=== PATIENT | female | born 1970 | race African-American/Black ===

== ENCOUNTER 2019-06-25 17:36 | Emergency (ER) | payer BC, OTHER ==
[~2019-06-25] VITALS: Ht 157.4 cm; Wt 87.7 kg
[2019-06-25 18:39] LABS: BASOPHILS % (AUTO) 1 % (0-10); EOSINOPHILS # (AUTO) 0.1 10^3/uL (0.0-0.3); EOSINOPHILS % (AUTO) 1 % (0-10); HEMATOCRIT 40 % (35-52); HEMOGLOBIN 13.4 G/DL (11.5-16.0); LYMPHOCYTES # (AUTO) 1.3 X 10^3 (1.0-4.0); LYMPHOCYTES % (AUTO) 21 % (12-44); MEAN CORPUSCULAR HEMOGLOBIN 30 PG (25-34); MEAN CORPUSCULAR HGB CONC 33 G/DL (32-36); MEAN CORPUSCULAR VOLUME 90 FL (80-99); MEAN PLATELET VOLUME 9.4 FL (7.4-10.4); MONOCYTES # (AUTO) 0.6 X 10^3 (0.0-1.0); MONOCYTES % (AUTO) 10 % (0-12); NEUTROPHILS # (AUTO) 4.1 X 10^3 (1.8-7.8); NEUTROPHILS % (AUTO) 67 % (42-75); PLATELET COUNT 323 10^3/uL (130-400); WHITE BLOOD COUNT 6.2 10^3/uL (4.3-11.0)
[2019-06-25 18:44] LABS: INR 0.9 (0.8-1.4); PROTHROMBIN TIME PATIENT 12.6 SEC (12.2-14.7)
[2019-06-25] MEDS ORDERED: ASPIRIN 81 MG CHEW (CHILDREN'S ASA) PO ONE (18:45)
--- NOTE | 2019-06-25 18:55 | Diagnostic Imaging Report ---
EXAMINATION: Single view of the chest. INDICATION: Neck and shoulder pain. Chest discomfort. COMPARISON: No comparison available. FINDINGS: Lungs demonstrate no focal infiltrate or consolidation. There is no effusion. There is no pneumothorax. Heart size and mediastinal contours are appropriate. The pulmonary vascularity appears normal. No acute or suspicious osseous abnormality is demonstrated. IMPRESSION: No radiographic evidence of an acute cardiopulmonary process. Dictated by: Dictated on workstation # [id number]
[2019-06-25 18:56] LABS: ALANINE AMINOTRANSFERASE 38 U/L (0-55); ALBUMIN 4.5 GM/DL (3.2-4.5); ALKALINE PHOSPHATASE 87 U/L (40-136); AMYLASE 117 U/L (25-125); BILIRUBIN,TOTAL 0.2 MG/DL (0.1-1.0); BUN/CREATININE RATIO 16; CALCIUM 10.2 MG/DL (8.5-10.1); CARBON DIOXIDE 22 MMOL/L (21-32); CHLORIDE 104 MMOL/L (98-107); CREATINE KINASE 82 U/L (29-168); CREATININE SERUM 0.81 MG/DL (0.60-1.30); GFR ESTIMATED > 60; GLUCOSE 196 MG/DL (70-105); LIPASE 69 U/L (8-78); MAGNESIUM 1.8 MG/DL (1.6-2.4); POTASSIUM 3.8 MMOL/L (3.6-5.0); SODIUM 138 MMOL/L (135-145); TOTAL PROTEIN 7.7 GM/DL (6.4-8.2)
[2019-06-25 19:02] LABS: CREATINE KINASE MB 0.7 NG/ML (<6.6)
[2019-06-25] MEDS ORDERED: IOHEXOL 350 MG/ML 100 ML (OMNIPAQUE 350) VIAL IV ONE (19:45)
[2019-06-25] MEDS ORDERED: NS 100 ML (IVPB) BAG IV ONE (19:45)
[2019-06-25] MEDS ORDERED: HOLD METFORMIN - RECEIVED CONTRAST 20 ML VIAL IV SCH (19:45)
--- NOTE | 2019-06-25 20:08 | Diagnostic Imaging Report ---
PROCEDURE: CT angiography of the chest with contrast. TECHNIQUE: Multiple contiguous axial images were obtained through the chest after uneventful bolus administration of intravenous contrast. 3D reconstructed CTA MIP acquisitions were also performed. Auto Exposure Controls were utilized during the CT exam to meet ALARA standards for radiation dose reduction. INDICATION: Shortness of breath and chest pain. FINDINGS: There is adequate opacification of the pulmonary arterial system for diagnostic evaluation. There are no CT angiographic findings of a filling defect within the pulmonary arteries to suggest current embolism. The thoracic aorta is normal in caliber without dissection. Heart size is normal. There is no pericardial effusion. There are no pathologically enlarged mediastinal, hilar or axillary lymph nodes. The lungs demonstrate some minimal dependent atelectasis at the lung bases. There is some very slight patchy interstitial and alveolar opacity within the anterior aspect of the right upper lobe. Some minimal infiltrates given an anti-dependent location cannot be excluded. There is no effusion or pneumothorax. Visualized portion of the upper abdomen demonstrates no evidence of an acute process. There is a fluid collection with surrounding soft tissue thickening within the lateral and inferior right breast. Correlate for recent surgical intervention. IMPRESSION: 1. No CT angiographic evidence of pulmonary embolism. 2. Thoracic aorta unremarkable. 3. Question of some minimal infiltrate within the anterior aspect of the right upper lobe. Lungs otherwise are clear. 4. No pathologic adenopathy 5. No acute upper abdominal abnormality 6. Nonspecific fluid collection within the inferior and lateral right breast. Correlate for any known recent intervention. An abscess cannot be excluded. Dictated by: Dictated on workstation # [id number]
[2019-06-25] MEDS ORDERED: RX-CYCLOBENZAPRINE 10 MG (FLEXERIL) TAB PPK#3 PO STA (20:21)
[2019-06-25] MEDS ORDERED: RX-DOXYCYCLINE 100 MG (VIBRAMYCIN) TAB PPK#2 PO STA (20:21)
[2019-06-25] MEDS ORDERED: DOXY100C42 PO (20:25)
[2019-06-25] MEDS ORDERED: CYCL10TA9 PO (20:25)
--- NOTE | 2019-06-25 20:25 | ED Chest Pain ---
General Chief Complaint: Chest Pain Stated Complaint: NECK PAIN,NAUSEA Nursing Triage Note: Pt amb to triage w/o difficulty with c/o rt neck, rt shoulder, and medial chest discomfort. Reports onset of discomfort to be 06/23/19. Reports symptoms be to associated with intermittent nausea and SOA. Reports she is currently being treated with a "trial breast cancer drug." Reports to have had her most recent injection of "trial medication" on 06/19/19. Nursing Sepsis Screen: No Definite Risk Source: patient (PT SPEAKS [place] [place]) History of Present Illness Date Seen by Provider: Jun 25, 2019 Time Seen by Provider: 18:25 Initial Comments PT ARRIVES VIA POV C/O PAIN TO RIGHT LATERAL NECK AND SHOULDER/UPPER ARM PAIN SINCE Sunday06/23/19 HAS HAD ONGOING NAUSEA OFF AND ON FOR 2 WEEKS C/O SHORTNESS OF BREATH ON EXERTION TODAY NO COUGH NO FEVER NO SWELLING IN LEGS/ FEET OR PAIN IN CALVES NO DIZZINESS NO PALPITATIONS NO SYNCOPE PT TRAVELS WEEKLY FOR HER WORK, AND STATES THAT SHE WILL BE DRIVING BACK TO [facility] IN THE MORNING--STATES SHE "JUST WANTED TO GET CHECKED" BEFORE SHE DRIVES HOME TOMORROW HAS NOT TAKEN ANYTHING FOR PAIN PT IS RIGHT HANDED PT HAS HISTORY OF BILATERAL P.E.'S IN 2018--TOOK LOVENOX FOR 8 MONTHS, LAST DOSE IN DECEMBER. IS NOT ON ASPIRIN OR ANY BLOOD THINNERS PT ALSO IS DIABETIC AND HAS HTN PT STATES SHE WAS TREATED FOR BREAST CANCER IN 2018--HAD RIGHT BREAST LUMPECTOMY, CHEMO AND RADIATION. STATES SHE IS NOW IN A CLINICAL TRIAL--"A VACCINE"--HAD HER SECOND INJECTION 06/19/19 DENIES HISTORY OF CARDIAC PROBLEMS Allergies and Home Medications Allergies Coded Allergies: epinephrine (Verified Allergy, Mild, 06/25/19) "MAKES ME HYPER" Home Medications Cyclobenzaprine HCl 10 Mg Tablet, 10 MG PO Q8H Prescribed by: SKYLA RODRIGUEZ on 06/25/192024 Doxycycline Monohydrate 100 Mg Capsule, 100 MG PO BID Prescribed by: SKYLA RODRIGUEZ on 06/25/192024 Patient Home Medication List Home Medication List Reviewed: Yes Review of Systems Review of Systems Constitutional: no symptoms reported; No chills, No dizziness, No fever EENTM: No Symptoms Reported Respiratory: See HPI; Denies Cough, Denies Orthopnea; SOA With Exertion; Denies Wheezing Cardiovascular: Denies Chest Pain, Denies Edema, Denies Irregular Heart Rate, Denies Lightheadedness, Denies Palpitations, Denies Syncope Gastrointestinal: See HPI; Denies Abdominal Pain; Nausea; Denies Vomiting Genitourinary: No Symptoms Reported Musculoskeletal: see HPI Skin: no symptoms reported Psychiatric/Neurological: No Symptoms Reported; Denies Paresthesia Endocrine: No Symptoms Reported Hematologic/Lymphatic: No Symptoms Reported Past Jldrbqi-Gncwby-Ffqroe Hx Patient Social History Alcohol Use: Occasionally Uses (1-2 DRINKS / WEEK) Recreational Drug Use: No Smoking Status: Never a Smoker 2nd Hand Smoke Exposure: No Recent Foreign Travel: No Contact w/Someone Who Travel: No Recent Infectious Disease Expo: No Recent Hopitalizations: No Seasonal Allergies Seasonal Allergies: Yes Past Medical History Surgeries: Yes (RIGHT BREAT LUMPECTOMY 2017) Respiratory: Yes (BILATERAL P.E. 2018--TOOK LOVENOX X 8 MONTHS--LAST DOSE 12/2018) Pulmonary Embolism, Sleep Apnea Currently Using CPAP: Yes Currently Using BIPAP: No Cardiac: Yes Hypertension Neurological: Yes (NARCOLEPSY) Genitourinary: No Gastrointestinal: Yes Chronic Constipation, Irritable Bowel Musculoskeletal: No Endocrine: Yes Diabetes, Non-Insulin dep Are Your Blood Sugars Over 250: No HEENT: Yes Glaucoma Cancer: Yes (RIGHT BREAST CANCER DX 2017--S/P LUMPECTOMY, CHEMO AND RADIATION. CURRENTLY ON DRUG TRIAL WITH A "VACCINE"--HAD SECOND INJECTION 06/19/19-- OF 06/25/1019) Breast Did You Recieve Any Treatments: Yes What Type of Treatment Did You: Chemotherapy, Radiation, Surgical Intervention, Other Reports she is currently treating breast cancer with a "trial medication." Psychosocial: Yes (NARCOLEPSY) Integumentary: No Physical Exam Vital Signs Vital Signs - First Documented 06/25/19 18:00 Temp 37.0 Pulse 97 Resp 18 B/P (MAP) 139/105 (116) Pulse Ox 98 O2 Delivery Room Air Capillary Refill : Less Than 3 Seconds Height, Weight, BMI Height: '" Weight: lbs. oz. kg; 35.00 BMI Method: General Appearance: No Apparent Distress, WD/WN HEENT: PERRL/EOMI Neck: Full Range of Motion, Normal Inspection, Non Tender, Supple, Carotid Bruit Respiratory: Chest Non Tender, Normal Breath Sounds, No Accessory Muscle Use, No Respiratory Distress Cardiovascular: Regular Rate, Rhythm, No Edema, No JVD, No Murmur, Normal Peripheral Pulses Gastrointestinal: Normal Bowel Sounds, No Organomegaly, No Pulsatile Mass, Non Tender, Soft Extremity: Normal Capillary Refill, Normal Range of Motion, No Calf Tenderness, No Pedal Edema, Other (TENDERNESS TO RIGHT TRAPEZIUS MUSCLE--PALPATION REPRODUCES PAIN ) Neurologic/Psychiatric: Alert, Oriented x3, No Motor/Sensory Deficits, Normal Mood/Affect, pigskin trimmer II-XII Norm as Tested Skin: Normal Color (PT IS BLACK), Warm/Dry; No Rash Progress/Results/Core Measures Results/Orders Lab Results Laboratory Tests Test 06/25/19 18:20 Range/Units White Blood Count 6.2 4.3-11.0 10^3/uL Red Blood Count 4.44 4.35-5.85 10^6/uL Hemoglobin 13.4 11.5-16.0 G/DL Hematocrit 40 35-52 % Mean Corpuscular Volume 90 80-99 FL Mean Corpuscular Hemoglobin 30 25-34 PG Mean Corpuscular Hemoglobin Concent 33 32-36 G/DL Red Cell Distribution Width 13.0 10.0-14.5 % Platelet Count 323 130-400 10^3/uL Mean Platelet Volume 9.4 7.4-10.4 FL Neutrophils (%) (Auto) 67 42-75 % Lymphocytes (%) (Auto) 21 12-44 % Monocytes (%) (Auto) 10 0-12 % Eosinophils (%) (Auto) 1 0-10 % Basophils (%) (Auto) 1 0-10 % Neutrophils # (Auto) 4.1 1.8-7.8 X 10^3 Lymphocytes # (Auto) 1.3 1.0-4.0 X 10^3 Monocytes # (Auto) 0.6 0.0-1.0 X 10^3 Eosinophils # (Auto) 0.1 0.0-0.3 10^3/uL Basophils # (Auto) 0.0 0.0-0.1 10^3/uL Prothrombin Time 12.6 12.2-14.7 SEC INR Comment 0.9 0.8-1.4 Activated Partial Thromboplast Time 25 24-35 SEC Sodium Level 138 135-145 MMOL/L Potassium Level 3.8 3.6-5.0 MMOL/L Chloride Level 104 98-107 MMOL/L Carbon Dioxide Level 22 21-32 MMOL/L Anion Gap 12 5-14 MMOL/L Blood Urea Nitrogen 13 7-18 MG/DL Creatinine 0.81 0.60-1.30 MG/DL Estimat Glomerular Filtration Rate > 60 BUN/Creatinine Ratio 16 Glucose Level 196 H 70-105 MG/DL Calcium Level 10.2 H 8.5-10.1 MG/DL Corrected Calcium 9.8 8.5-10.1 MG/DL Magnesium Level 1.8 1.6-2.4 MG/DL Total Bilirubin 0.2 0.1-1.0 MG/DL Aspartate Amino Transf (AST/SGOT) 26 5-34 U/L Alanine Aminotransferase (ALT/SGPT) 38 0-55 U/L Alkaline Phosphatase 87 40-136 U/L Total Creatine Kinase 82 29-168 U/L Creatine Kinase MB 0.7 <6.6 NG/ML Myoglobin 16.5 10.0-92.0 NG/ML Troponin I < 0.028 <0.028 NG/ML B-Type Natriuretic Peptide 14.3 <100.0 PG/ML Total Protein 7.7 6.4-8.2 GM/DL Albumin 4.5 3.2-4.5 GM/DL Amylase Level 117 25-125 U/L Lipase 69 8-78 U/L My Orders Orders - SKYLA RODRIGUEZ DO Cbc With Automated Diff (06/25/19 18:33) Magnesium (06/25/19 18:33) Chest 1 View, Ap/Pa Only (06/25/19 18:33) Ekg Tracing (06/25/19 18:33) Cardiac Profile 1 (06/25/19 18:33) Comprehensive Metabolic Panel (06/25/19 18:33) Myoglobin Serum (06/25/19 18:33) Protime With Inr (06/25/19 18:33) Partial Thromboplastin Time (06/25/19 18:33) O2 (06/25/19 18:33) Monitor-Rhythm Ecg Trace Only (06/25/19 18:33) Ed Iv/Invasive Line Start (06/25/19 18:33) Creatine Kinase (06/25/19 18:33) Creatine Kinase Mb (06/25/19 18:33) Lipase (06/25/19 18:33) Amylase (06/25/19 18:33) BNP (06/25/19 18:33) Aspirin Chewable Tablet (Baby Aspirin Ch (06/25/19 18:45) Ct Angio Chest W (06/25/19 19:26) Iohexol Injection (Omnipaque 350 Mg/Ml 1 (06/25/19 19:45) Received Contrast (Hold Metformin- Contr (06/25/19 19:45) Ns (Ivpb) (Sodium Chloride 0.9% Ivpb Bag (06/25/19 19:45) Rx-Doxycycline Tablet (Rx-Vibramycin Tab (06/25/19 20:21) Rx-Cyclobenzaprine Tablet (Rx-Flexeril T (06/25/19 20:21) Ibuprofen Tablet (Motrin Tablet) (06/25/19 20:30) Medications Given in ED Current Medications Medications Dose Ordered Sig/Shanel Route Start Time Stop Time Status Last Admin Dose Admin Aspirin 324 mg ONCE ONCE PO 06/25/19 18:45 06/25/19 18:46 DC 06/25/19 18:48 324 MG Iohexol 100 ml ONCE ONCE IV 06/25/19 19:45 06/25/19 19:48 DC 06/25/19 20:00 85 ML Sodium Chloride 100 ml ONCE ONCE IV 06/25/19 19:45 06/25/19 19:48 DC 06/25/19 20:00 80 ML Vital Signs/I&O 06/25/19 06/25/19 06/25/19 18:00 18:00 20:50 Temp 37.0 37.0 Pulse 97 97 Resp 18 18 B/P (MAP) 139/105 (116) 110/91 (116) Pulse Ox 98 98 O2 Delivery Room Air Room Air Room Air Blood Pressure Mean: 116 Progress Progress Note : Progress Note PAIN EASED AT DISMISSAL BP DOWN WITHOUT TREATMENT Initial ECG Impression Date: Jun 26, 2019 Initial ECG Impression Time: 18:31 Initial ECG Rate: 92 Initial ECG Rhythm: Normal Sinus Initial ECG Impression: Nonspecific Changes (FLATTENED T WAVES) Initial ECG Comparisson: No Previous ECG Available Diagnostic Imaging Comments CXR--NO ACUTE PROCESS, PER RADIOLOGIST REPORT CT CHEST ANGIOGRAM--NO P.E., POSSIBLE RUL ATELECTASIS/INFILTRATE, PER RADIOLOGIST REPORT AT 2016 Reviewed: Reviewed by Me Departure Impression Primary Impression: RUL PNEUMONIA Additional Impression: Strain of right trapezius muscle Disposition: HOME, SELF-CARE Condition: Stable Departure-Patient Inst. Referrals: NO,LOCAL PHYSICIAN (PCP/Family) Primary Care Physician Patient Instructions: Community-Acquired Pneumonia, Adult (DC), Muscle Strain (DC) Add. Discharge Instructions: TYLENOL 1 GRAM / MOTRIN 800 MG 4 TIMES A DAY NEEDED FOR PAIN MOIST HEAT TO SHOULDER/NECK AREA AT 20 MINUTE INTERVALS LOTS OF FLUIDS FOLLOW UP WITH YOUR DR AT HOME, IN 3-4 DAYS FOR FURTHER CARE GO TO NEAREST ER IF YOUR SYMPTOMS WORSEN All discharge instructions reviewed with patient and/or family. Voiced understanding. Scripts Doxycycline Monohydrate (Doxycycline Monohydrate) 100 Mg Capsule 100 MG PO BID, #20 CAP Prov: SKYLA RODRIGUEZ DO 06/25/19 Cyclobenzaprine HCl (Cyclobenzaprine HCl) 10 Mg Tablet 10 MG PO Q8H, #15 TAB Prov: SKYLA RODRIGUEZ DO 06/25/19 SKYLA RODRIGUEZ DO Jun 25, 2019 20:25
[2019-06-25] MEDS ORDERED: IBUPROFEN 800 MG (MOTRIN) TAB PO ONE (20:30)
[2019-06-25 20:50] VITALS: BP 110/91
== END 2019-06-25 20:50 | disposition home or self-care (01) ==
LOC: ER 17:38
DX: S29.012A Strain of muscle and tendon of back wall of thorax, initial encounter (principal); J18.1 Lobar pneumonia, unspecified organism; E11.9 Type 2 diabetes mellitus without complications; I10 Essential (primary) hypertension; G47.30 Sleep apnea, unspecified; K58.9 Irritable bowel syndrome, unspecified; Z87.19 Personal history of other diseases of the digestive system; Z85.3 Personal history of malignant neoplasm of breast; Z90.11 Acquired absence of right breast and nipple; Z88.8 Allergy status to other drugs, medicaments and biological substances; Z86.711 Personal history of pulmonary embolism; X58.XXXA Exposure to other specified factors, initial encounter
CPT/HCPCS: 36415; 71045; 71275; 80053; 82150; 82550; 82553; 83690; 83735; 83874; 83880; 84484; 85025; 85610; 85730; 93005; 93041